=== PATIENT | female | born 1990 | race American Indian/Alaskan Native ===

== ENCOUNTER 2018-03-21 20:44 | Emergency (ER) | payer OTHER, MEDICAID ==
[2018-03-21 21:00] VITALS: BP 99/65
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
[2018-03-22] MEDS ORDERED: FLEXERIL PO ONE (04:47)
[2018-03-22] MEDS ORDERED: NORCO 5/325 PO ONE (04:47)
== END 2018-03-22 05:40 | disposition home or self-care (01) ==
LOC: ED 20:44
DX: M54.2 Cervicalgia (principal); R51 Headache; M25.512 Pain in left shoulder; M25.511 Pain in right shoulder; J45.909 Unspecified asthma, uncomplicated; V43.52XA Car driver injured in collision with other type car in traffic accident, initial encounter; Y93.89 Activity, other specified; Y99.8 Other external cause status; Y92.410 Unspecified street and highway as the place of occurrence of the external cause
CPT/HCPCS: 99282